=== PATIENT | female | born 1950 | race Caucasian/White ===

== ENCOUNTER 2018-06-02 07:05 | Day surgery (SDC) | payer MEDICARE, BC ==
[~2018-06-02 07:05] MED LIST: Buffered Lidocaine 0.9% SYRIN* 5 ML/SYR SYRINGE INTRADERM ONE; GENTAMICIN ADULT IVPB ONE; NS 0.9% IVPB ONE
[2018-06-02] MEDS ORDERED: Clindamycin 900 MG/D5W BAG(*) 900 MG/50 ML BAG IVPB ONE (07:59)
[2018-06-02] MEDS ORDERED: Midazolam* 1 MG/ML 2 ML VIAL (2 MG) ONE (08:02)
[2018-06-02] MEDS ORDERED: fentaNYL* 50 MCG/ML 2 ML VIAL (100 MCG VIAL) ONE (08:02)
[2018-06-02] MEDS ORDERED: Chloroprocaine 2%* 20 ML VIAL ONE (09:05)
[2018-06-02] MEDS ORDERED: Ketorolac INJ* 30 MG/ML 1 ML VIAL ONE (09:33)
[2018-06-02] MEDS ORDERED: Bupivacaine 0.5% SDV PF* 30ML VIAL ONE (09:35)
[2018-06-02 11:27] VITALS: BP 115/64
--- NOTE | 2018-06-03 07:35 | OP ---
AMENDED REPORT NOW INCLUDES DATE OF OPERATION - ESIGNED BEFORE ADJUSTMENT * DATE OF OPERATION: 06/02/18 - SDS DATE OF : 46 SURGEON: Dr. Sommers. ANESTHESIOLOGIST: Dr. Cardona. ANESTHESIA: Spinal. PRE-OP DIAGNOSES: Lower abdominal pain, thickened endometrium on sonogram, stenotic cervix. POST-OP DIAGNOSES: Lower abdominal pain, thickened endometrium, stenotic cervix. OPERATIVE PROCEDURE: Dilation of the cervix, hysteroscopy, curettage. ESTIMATED BLOOD LOSS: Minimal, less than 50 cc. URINE OUTPUT: 800 cc clear urine at the start of the surgery with a straight cath. FINDINGS: Midline cervix, small mobile uterus, no adnexal mass is palpated. The patient has second degree cystocele. The cervix was stenotic. The endometrium appeared atrophic throughout. COMPLICATIONS: None. COUNTS: Sponge count correct x2. CONDITION: The patient was brought to the recovery room, awake and in stable condition. DESCRIPTION OF PROCEDURE: The patient was brought to the operating room. When spinal anesthesia was found to be adequate, the patient was prepped and draped in the usual sterile fashion in the dorsal lithotomy position. Exam under anesthesia was performed after time-out. The bladder was emptied with a straight cath of 800 cc clear urine. Weighted speculum was placed in the vagina. The anterior lip of the cervix was grasped with a single-tooth tenaculum. The cervix was gently dilated initially using an Os Finder and then the graduated Painter dilators to a size 22. The hysteroscope was introduced. No polyps were seen. The endometrium appeared atrophic throughout. The hysteroscope was removed. Curettage was performed. Minimal tissue was retrieved. The single-tooth tenaculum was removed from the cervix. Excellent hemostasis was noted. All instruments removed from the vagina. Betadine was cleaned from the patient's perineum and the patient was brought to the recovery room, awake and in stable condition. [id number]/[facility] #: [id number] [facility]
== END 2018-06-02 11:45 | disposition home or self-care (01) ==
LOC: OR 07:05
PROVIDERS: ATTEND Obstetrics & Gynecology
DX: R10.2 Pelvic and perineal pain (principal); N94.9 Unspecified condition associated with female genital organs and menstrual cycle; N88.2 Stricture and stenosis of cervix uteri; E78.5 Hyperlipidemia, unspecified; K21.9 Gastro-esophageal reflux disease without esophagitis; F41.8 Other specified anxiety disorders; M54.5 Low back pain
CPT/HCPCS: 88305; J1580; J1885; J2250; J2400; J3010